=== PATIENT | female | born 1985 | race Caucasian/White ===

== ENCOUNTER 2018-05-01 19:54 | Emergency (ER) | payer MEDICARE ==
[~2018-05-01] VITALS: Ht 162.6 cm; Wt 49.9 kg
[~2018-05-01 19:54] MED LIST: ALPR0.5T PO; ATROVENT HFA12.9 GM IH; CLOB15CR TP; FLUO15CR2 TP; HYDR-2163 PO; KETO554C TP; LEVO100T PO; LEVO1TAB8 PO; MAGN400T22 PO; MOME17SP NS; ONDA4TAB10 SL; RIZA5TAB10 PO; SUMA100T3 PO; TIZA4CAP PO; VENL75TA PO; VERA80TA2 PO; ZOLM5SPR4 NS; [UNRECOGNIZED DRUG - CODE] MC
[2018-05-01 20:10] VITALS: BP 142/92
[2018-05-01] MEDS ORDERED: SURGICEL FIBRILLAR 1X2 EACH. TP ONE (20:15)
--- NOTE | 2018-05-01 20:21 | PHYS DOC ---
Past Medical History Past Medical History: Anxiety, Depression, Hypertension, Hypothyroid, Migraines , Seizure, Other Additional Past Medical Histor: HYDROCEPHALUS, PSORIASIS (KAROL BONILLA APRN) Past Surgical History: Cholecystectomy, Tonsillectomy, Other Additional Past Surgical Histo: 54 BRAIN SURGERIES (KAROL BONILLA APRN) Alcohol Use: Rarely Drug Use: None (KARLO BONILLA APRN) Adult General Chief Complaint Chief Complaint: FINGER INJURY HPI HPI Patient is a 32 year old female who presents to the ER with complaints of continued bleeding from tip of 5th digit of left hand after cutting herself 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 Pt states that her last tetanus immunization was less than 5 years ago. She denies any bleeding disorders. Patient has been taking tylenol as needed for pain, currently her pain is a 5/10 on the pain scale. Pain increases when the area is touched. (KAROL BONILLA APRN) Review of Systems Review of Systems Constitutional: Denies fever or chills [] Musculoskeletal: Denies joint pain [] Integument: Denies rash; See HPI Neurologic: Denies focal weakness or sensory changes [] (KAROL BONILLA APRN) Current Medications Current Medications Current Medications Medications (Trade) Dose Ordered Sig/Tasia Start Time Stop Time Status Last Admin Dose Admin Cellulose (Surgicel Fibrillar 1x2) 1 each 1X ONCE 05/01/18 20:15 05/01/18 20:16 Cancel Cellulose (Surgicel Hemostat 2x3) 1 each 1X ONCE 05/01/18 20:30 05/01/18 20:31 DC 05/01/18 20:30 1 EACH (OJ BYRD DO) Allergies Allergies Allergies Coded Allergies Type Severity Reaction Last Updated Verified Cephalosporins Allergy Unknown Rash 02/21/14 No Sulfa (Sulfonamide Antibiotics) Allergy Unknown Rash 02/21/14 No azithromycin Allergy Unknown Diarrhea 02/21/14 No codeine Allergy Unknown Nausea and Vomiting 02/21/14 No diphenhydramine Allergy Unknown Palpitations 02/21/14 No divalproex sodium Allergy Unknown 02/21/14 No estradiol Allergy Unknown Itching 02/21/14 No levofloxacin Allergy Unknown Nausea 02/21/14 No lubiprostone Allergy Unknown Nausea and Vomiting 02/21/14 No morphine Allergy Unknown Rash 02/21/14 No oxycodone Allergy Unknown Nausea and Vomiting 02/21/14 No pertussis vaccine,adsorbed Allergy Unknown 02/21/14 No prochlorperazine Allergy Unknown 02/21/14 No vancomycin Allergy Unknown Hives 02/21/14 No (OJ BYRD DO) Physical Exam Physical Exam Constitutional: Well developed, well nourished, no acute distress, non-toxic appearance. [] HENT: Normocephalic, atraumatic, bilateral external ears normal, nose normal. [] Eyes: conjunctiva normal, no discharge. [] Neck: Normal range of motion, no stridor. [] Skin: Warm, dry, no erythema, no rash; 0.5 cm diameter skin avulsion noted to tip of left hand 5th digit, bleeding controlled by bandage [] Extremities: No bony tenderness, no cyanosis, no clubbing, ROM intact, no edema. [] Neurologic: Alert and oriented X 3, normal motor function, normal sensory function, no focal deficits noted. [] Psychologic: Affect normal, judgement normal, mood normal. [] (KAROL BONILLA APRN) Current Patient Data Vital Signs Vital Signs Date Time Temp Pulse Resp B/P (MAP) Pulse Ox O2 Delivery O2 Flow Rate FiO2 05/01/18 20:10 97.5 72 16 142/92 (109) 98 Room Air 97.5 (OJ BYRD DO) EKG EKG [] (KAROL BONILLA APRN) Radiology/Procedures Radiology/Procedures The affected finger was soaked in betadine and cleansed by nurse. Surgicel was applied over the area, telfa was applied, then wrapped in gauze by nurse. [] (KAROL BONILLA APRN) Course & Med Decision Making Course & Med Decision Making Pertinent Labs and Imaging studies reviewed. (See chart for details) Prescription was written for bacitracin ointment. Wound care instructions provided. Follow up with PCP if symptoms persist, return to the ER if symptoms worsen. Patient verbalized an understanding of home care, medications, follow-up, and return to ED instructions and was in agreement with the plan of care. [] (KAROL BONILLA APRN) Dragon Disclaimer Dragon Disclaimer This electronic medical record was generated, in whole or in part, using a voice recognition dictation system. (KAROL BONILLA APRN) Departure Departure Impression: Primary Impression: Avulsion of skin of finger without complication Disposition: 01 HOME, SELF-CARE Condition: STABLE Referrals: FARSHAD SELF MD (PCP) Patient Instructions: Finger Avulsion Additional Instructions: Keep the dressing that was applied tonight in the ER on until tomorrow. Then you may remove the dressing and apply the prescribed antibiotic ointment and a new bandage twice daily until healed. Tylenol or ibuprofen as needed for pain. Follow up with your primary care doctor if symptoms persist, return to the ER if symptoms worsen. Scripts Bacitracin (Bacitracin) 28.4 Gm Oint...g. 1 MERCEDES TP BID for 7 Days, #1 TUBE 0 Refills Prov: KAROL BONILLA APRN 05/01/18 Attending Signature Attending Signature I have reviewed the PA/SPECIAL PROCEDURES TECH's note and plan of care. I was available for consultation as needed during the patient's visit in the emergency department. I agree with the clinical impression, plan, and disposition. (OJ BYRD DO) Problem Qualifiers Primary Impression: Avulsion of skin of finger without complication Encounter type: initial encounter Qualified Codes: S61.209A - Unspecified open wound of unspecified finger without damage to nail, initial encounter KAROL BONILLA APRN May 01, 2018 20:21 OJ BYRD DO May 02, 2018 01:28
[2018-05-01] MEDS ORDERED: SURGICEL HEMOSTAT 2X3 EACH. TP ONE (20:30)
[2018-05-01] MEDS ORDERED: BACI28.43 TP (20:52)
== END 2018-05-01 21:01 | disposition home or self-care (01) ==
LOC: ER 19:54
DX: S61.207A Unspecified open wound of left little finger without damage to nail, initial encounter (principal); E03.9 Hypothyroidism, unspecified; G43.909 Migraine, unspecified, not intractable, without status migrainosus; Z88.1 Allergy status to other antibiotic agents; Z88.2 Allergy status to sulfonamides; Z88.5 Allergy status to narcotic agent; Z88.8 Allergy status to other drugs, medicaments and biological substances; Z88.7 Allergy status to serum and vaccine; I10 Essential (primary) hypertension; W27.4XXA Contact with kitchen utensil, initial encounter; Y93.89 Activity, other specified; Y92.89 Other specified places as the place of occurrence of the external cause; Y99.8 Other external cause status
CPT/HCPCS: 99283